=== PATIENT | female | born 1985 ===

== ENCOUNTER 2023-10-08 22:53 | Emergency (ER) | payer OTHER ==
[~2023-10-08] VITALS: Ht 152.4 cm; Wt 111.6 kg
[2023-10-08 23:01] VITALS: BP_SYST 138; PULSE 94; RESP 20; TEMP 97; O2SAT 95
[2023-10-09] MEDS ORDERED: PRED20TA PO (01:42)
[2023-10-09] MEDS ORDERED: CEPH-548 PO (01:42)
[2023-10-09] MEDS ORDERED: DIPH25CA83 PO (01:43)
[2023-10-09 01:51] VITALS: BP_SYST 131; PULSE 89; RESP 18; TEMP 97.2; O2SAT 97
== END 2023-10-09 01:50 | disposition home or self-care (01) ==
LOC: SED 22:53
DX: L03.311 Cellulitis of abdominal wall (principal); R21 Rash and other nonspecific skin eruption; R03.0 Elevated blood-pressure reading, without diagnosis of hypertension; E11.9 Type 2 diabetes mellitus without complications; Z98.890 Other specified postprocedural states
CPT/HCPCS: 99283